=== PATIENT | female | born 1950 | race Caucasian/White ===

== ENCOUNTER 2017-01-09 16:29 | Emergency (ER) | payer MEDICARE ==
[2017-01-09] MEDS ORDERED: methylPREDNISolone SOD SUCC PF 125 MG/2 ML VIAL. IV ONE (18:45)
[2017-01-09] MEDS ORDERED: ALBUTEROL SULFATE 2.5 MG/3 ML NEBU. NEB ONE (18:45)
[2017-01-09] MEDS ORDERED: IPRATRPIUM/ALBUTEROL 0.5/2.5MG 3 ML NEBU. NEB ONE (18:45)
[2017-01-09] MEDS ORDERED: IV NORMAL SALINE 500ML 500 ML IV ONE (18:45)
[2017-01-09] MEDS ORDERED: IOHEXOL 300 MG/ML 75 ML VIAL. IV ONE (18:45)
[2017-01-09 19:45] LABS: BASO % 1 % (0-3); EOS % 0 % (0-3); HEMATOCRIT 43.9 % (36.0-47.0); HEMOGLOBIN 14.8 g/dL (12.0-15.5); LYMPH # 1.8 x10^3/uL (1.0-4.8); LYMPH % 23 % (24-48); MEAN CORPUSCULAR HEMOGLOBIN 31 pg (25-35); MEAN CORPUSCULAR HGB CONC 34 g/dL (31-37); MEAN CORPUSCULAR VOLUME 92 fL (79-100); MONO # 0.6 x10^3/uL (0.0-1.1); MONO % 8 % (0-9); NEUT # 5.2 x10^3uL (1.8-7.7); NEUT % 68 % (31-73); PLATELET COUNT 240 x10^3/uL (140-400); RED CELL DISTRIBUTION WIDTH 13.6 % (11.5-14.5); WHITE BLOOD COUNT 7.7 x10^3/uL (4.0-11.0)
--- NOTE | 2017-01-09 20:55 | RAD ---
Bilateral lower extremity venous duplex study 01/09/2017 Clinical History: Bilateral leg pain. Shortness of breath. Recent abdominal surgery. Technique: Using a combination of real time ultrasound imaging and color-flow and pulse Doppler imaging techniques along with graded compression and augmentation, duplex evaluation of the deep venous system of the both lower extremities was performed. Multiple images were obtained. Findings: There is no sonographic evidence of deep venous thrombosis involving the visualized deep venous structures of either lower extremity. Impression: Negative study. Electronically signed by: Jam Contreras MD (01/09/2017 8:52 PM) [facility]
[2017-01-09 21:22] LABS: ALBUMIN 3.5 g/dL (3.4-5.0); ALBUMIN/GLOBULIN RATIO 1.1 (1.0-1.7); CALCIUM 8.7 mg/dL (8.5-10.1); CREATININE 0.8 mg/dL (0.6-1.0); GFR 71.3; POTASSIUM 3.5 mmol/L (3.5-5.1); TOTAL BILIRUBIN 0.3 mg/dL (0.2-1.0); TOTAL PROTEIN 6.7 g/dL (6.4-8.2)
--- NOTE | 2017-01-09 21:25 | RAD ---
CT scan of the abdomen and pelvis without contrast 01/09/2017 CLINICAL HISTORY: Abdominal pain. History of abdominal surgery 6 weeks ago. TECHNIQUE: Unenhanced, contiguous, 3 mm axial sections were obtained through abdomen and pelvis. One or more of the following individualized dose reduction techniques were utilized for this study: 1. Automated exposure control. 2. Adjustment of the mA and/or kV according to patient size. 3. Use of iterative reconstruction technique. FINDINGS: Intravenous contrast was not administered due to the patient's history of contrast allergy. The absence of oral contrast material limits the study for the detection of bowel pathology. No previous imaging studies are available for comparison at this time. Images through the lung bases demonstrate linear bands of subsegmental atelectasis involving both lower lobes. The liver, spleen, pancreas, adrenal glands and kidneys are within normal limits. Moderate atherosclerotic calcification of the abdominal aorta is seen. The abdominal aorta tapers normally. The gallbladder slightly contracted. No free fluid or free air is seen within the abdomen. Air and stool seen throughout the colon. An anastomosis is seen within the right lower quadrant abdomen. There is no definite evidence of bowel obstruction. No abnormal fluid collection is seen to suggest evidence of an abscess. Increased density is seen within the subcutaneous fat to left of midline within the left lower quadrant abdomen which is presumably postsurgical. No abnormal fluid collection is seen. Images through the pelvis demonstrate the urinary bladder distended with urine. A moderate amount stool is seen involving the rectum. No free fluid is noted. Very mild S-shaped curvature of the thoracolumbar spine is seen. Degenerative changes are seen involving the mid and lower lumbar spine and both hips. IMPRESSION: No acute abnormality is seen. Electronically signed by: Jam Contreras MD (01/09/2017 9:21 PM) [facility]
[2017-01-09 22:30] VITALS: BP 136/69
[2017-01-09] MEDS ORDERED: PRED50TA PO (22:32)
[2017-01-09] MEDS ORDERED: LEVO750T31 PO (22:32)
--- NOTE | 2017-01-09 22:32 | PHYS DOC ---
Past History Past Medical History: Asthma, CHF, COPD, [place] Past Surgical History: Other Alcohol Use: None Drug Use: None Adult General Chief Complaint Chief Complaint: MULTIPLE COMPLAINTS HPI HPI Patient is a 66 year old female who presents with shortness of breath & abdominal pain. The patient reports onset of symptoms today with shortness of breath at rest, cough productive of yellow sputum, wheezing. Also reports bilateral calf pain & swelling greatest on the right. She denies fevers/chills , chest pain. She also reports abdominal bloating. She had surgery [address] Waller at [place] for abdominal wall abscess, states she had a large amount of blood from the wound last night but today denies any drainage, denies erythema/warmth/swelling. She denies nausea, vomiting, diarrhea, dysuria /hematuria. She has history of COPD dependent on home oxygen, CHF, CAD s/p [place]. No history of DVT/PE. Her resident care assistant is Dr. Benavidez. Review of Systems Review of Systems Constitutional: Denies fever or chills Eyes: Denies change in visual acuity HENT: Denies nasal congestion or sore throat Respiratory: Reports cough and shortness of breath Cardiovascular: Denies chest pain or edema GI: Denies abdominal pain, nausea, vomiting, reports bloating. : Denies dysuria or hematuria Musculoskeletal: Denies back pain or joint pain Integument: Denies rash or skin lesions. reports calf pain & swelling R > L Neurologic: Denies headache, focal weakness or sensory changes Current Medications Current Medications Current Medications Medications (Trade) Dose Ordered Sig/Fanny Start Time Stop Time Status Last Admin Dose Admin Albuterol Sulfate (Ventolin) 5 mg 1X ONCE 01/09/17 18:45 01/09/17 18:46 DC 01/09/17 19:22 5 MG Albuterol/ Ipratropium (Duoneb) 3 ml 1X ONCE 01/09/17 18:45 01/09/17 18:46 DC 01/09/17 19:22 3 ML Iohexol (Omnipaque 300 Mg/ml) 75 ml 1X ONCE 01/09/17 18:45 01/09/17 18:46 DC Methylprednisolone Sodium Succinate (SOLU-Medrol 125MG VIAL) 125 mg 1X ONCE 01/09/17 18:45 01/09/17 18:46 DC 01/09/17 21:17 125 MG Sodium Chloride 500 ml @ 0 mls/hr 1X ONCE 01/09/17 18:45 01/09/17 18:46 DC Allergies Allergies Allergies Coded Allergies Type Severity Reaction Last Updated Verified Penicillins Allergy Intermediate 01/09/17 Yes morphine Allergy Intermediate 01/09/17 Yes Physical Exam Physical Exam Constitutional: Well developed, well nourished, anxious HENT: Normocephalic, atraumatic, bilateral external ears normal, oropharynx moist, nose normal. Eyes: conjunctiva normal, no discharge. Neck: supple, no stridor. Cardiovascular: tachycardic, regular, no murmurs, no edema. Lungs & Thorax: LCTAB, no wheezing, no respiratory distress. tachypneic, speaking in short sentences. Abdomen: soft, moderate generalized tenderness with voluntary guarding, no rebound tenderness, nondistended. incision is to the left of the umbilicus, covered with clean bandage, no bleeding or purulent drainage, clean/dry/intact, no erythema/warmth/swelling. Skin: Warm, dry, no erythema, no rash. Back: No CVA tenderness. Extremities: No tenderness, no edema. no pitting edema to bilateral lower extremities but calf tenderness is present R > L, no skin changes. Neurologic: Alert and oriented X 3, no focal deficits noted. Psychologic: anxious Current Patient Data Vital Signs Vital Signs Date Time Temp Pulse Resp B/P (MAP) Pulse Ox O2 Delivery O2 Flow Rate FiO2 01/09/17 21:00 129 16 136/69 (91) 97 Room Air 01/09/17 19:33 1.5 01/09/17 18:00 98.9 Lab Results Laboratory Tests Test 01/09/17 19:25 01/09/17 20:41 White Blood Count 7.7 x10^3/uL (4.0-11.0) Red Blood Count 4.80 x10^6/uL (3.50-5.40) Hemoglobin 14.8 g/dL (12.0-15.5) Hematocrit 43.9 % (36.0-47.0) Mean Corpuscular Volume 92 fL (79-100) Mean Corpuscular Hemoglobin 31 pg (25-35) Mean Corpuscular Hemoglobin Concent 34 g/dL (31-37) Red Cell Distribution Width 13.6 % (11.5-14.5) Platelet Count 240 x10^3/uL (140-400) Neutrophils (%) (Auto) 68 % (31-73) Lymphocytes (%) (Auto) 23 % (24-48) L Monocytes (%) (Auto) 8 % (0-9) Eosinophils (%) (Auto) 0 % (0-3) Basophils (%) (Auto) 1 % (0-3) Neutrophils # (Auto) 5.2 x10^3uL (1.8-7.7) Lymphocytes # (Auto) 1.8 x10^3/uL (1.0-4.8) Monocytes # (Auto) 0.6 x10^3/uL (0.0-1.1) Eosinophils # (Auto) 0.0 x10^3/uL (0.0-0.7) Basophils # (Auto) 0.0 x10^3/uL (0.0-0.2) Lactic Acid Level 1.4 mmol/L (0.4-2.0) Prothrombin Time 10.9 SEC (9.4-11.4) Prothrombin Time INR 1.1 (0.9-1.1) D-Dimer (Neha) 0.42 mg/L (0.00-0.50) Sodium Level 140 mmol/L (136-145) Potassium Level 3.5 mmol/L (3.5-5.1) Chloride Level 104 mmol/L (98-107) Carbon Dioxide Level 31 mmol/L (21-32) Anion Gap 5 (6-14) L Blood Urea Nitrogen 10 mg/dL (7-20) Creatinine 0.8 mg/dL (0.6-1.0) Estimated GFR (Cockcroft-Gault) 71.3 BUN/Creatinine Ratio 13 (6-20) Glucose Level 108 mg/dL (70-99) H Calcium Level 8.7 mg/dL (8.5-10.1) Total Bilirubin 0.3 mg/dL (0.2-1.0) Aspartate Amino Transferase (AST) 17 U/L (15-37) Alanine Aminotransferase (ALT) 24 U/L (14-59) Alkaline Phosphatase 58 U/L (46-116) Troponin I Quantitative < 0.017 ng/mL (0-0.055) SK-Mjy-M-Type Natriuretic Peptide 90 pg/mL (0-124) Total Protein 6.7 g/dL (6.4-8.2) Albumin 3.5 g/dL (3.4-5.0) Albumin/Globulin Ratio 1.1 (1.0-1.7) Lipase 145 U/L (73-393) EKG EKG interpreted by me: NSR rate 98, no acute ST/T wave changes, normal intervals, no ectopy. some artifact is present.[] Radiology/Procedures Radiology/Procedures CXR: interpreted by me: no cardiomegaly, no infiltrate, no pneumothorax, no acute process. PROCEDURE: CT ABDOMEN PELVIS WO CONTRAST CT scan of the abdomen and pelvis without contrast 01/09/2017 CLINICAL HISTORY: Abdominal pain. History of abdominal surgery 6 weeks ago. TECHNIQUE: Unenhanced, contiguous, 3 mm axial sections were obtained through abdomen and pelvis. One or more of the following individualized dose reduction techniques were utilized for this study: 1. Automated exposure control. 2. Adjustment of the mA and/or kV according to patient size. 3. Use of iterative reconstruction technique. FINDINGS: Intravenous contrast was not administered due to the patient's history of contrast allergy. The absence of oral contrast material limits the study for the detection of bowel pathology. No previous imaging studies are available for comparison at this time. Images through the lung bases demonstrate linear bands of subsegmental atelectasis involving both lower lobes. The liver, spleen, pancreas, adrenal glands and kidneys are within normal limits. Moderate atherosclerotic calcification of the abdominal aorta is seen. The abdominal aorta tapers normally. The gallbladder slightly contracted. No free fluid or free air is seen within the abdomen. Air and stool seen throughout the colon. An anastomosis is seen within the right lower quadrant abdomen. There is no definite evidence of bowel obstruction. No abnormal fluid collection is seen to suggest evidence of an abscess. Increased density is seen within the subcutaneous fat to left of midline within the left lower quadrant abdomen which is presumably postsurgical. No abnormal fluid collection is seen. Images through the pelvis demonstrate the urinary bladder distended with urine. A moderate amount stool is seen involving the rectum. No free fluid is noted. Very mild S-shaped curvature of the thoracolumbar spine is seen. Degenerative changes are seen involving the mid and lower lumbar spine and both hips. IMPRESSION: No acute abnormality is seen. Electronically signed by: Jam Contreras MD (01/09/2017 9:21 PM) [facility] DICTATED AND SIGNED BY: JAM CONTRERAS MD DATE: 01/09/172056 PROCEDURE: VENOUS LOWER EXT BILATERAL Bilateral lower extremity venous duplex study 01/09/2017 Clinical History: Bilateral leg pain. Shortness of breath. Recent abdominal surgery. Technique: Using a combination of real time ultrasound imaging and color-flow and pulse Doppler imaging techniques along with graded compression and augmentation, duplex evaluation of the deep venous system of the both lower extremities was performed. Multiple images were obtained. Findings: There is no sonographic evidence of deep venous thrombosis involving the visualized deep venous structures of either lower extremity. Impression: Negative study. Electronically signed by: Jam Contreras MD (01/09/2017 8:52 PM) [facility] DICTATED AND SIGNED BY: JAM CONTRERSA MD DATE: 01/09/172048[] Course & Med Decision Making Course & Med Decision Making Pertinent Labs and Imaging studies reviewed. (See chart for details) The patient presents with shortness of breath & abdominal pain. She appears very anxious, is tachycardic in 110s, on oxygen by nasal cannula with normal oxygen saturation. She is very anxious, has OCD, seems to be gasping for breath during HPI but this may be related more to anxiety than cardiopulmonary disease. Gave nebulized breathing treatments & solumedrol, obtained labs, EKG, CXR, venous US of bilateral LE, & CT of her abdomen & pelvis. Labs were unremarkable. CXR negative for infiltrate, CT abdomen/pelvis no acute process, exam of abdomen demonstrates no surgical site infection. She felt much better after treatment here, resting comfortably with normal respiratory rate. Still tachycardic low 100s. Discussed results at length. Offered/recommended transfer to [place] for COPD exacerbation & further workup for PE due to her recent surgery with abnormal vitals. She did not want to stay in the hospital overnight. She is aware that there is not definite evidence that she does not have PE. However, it is encouraging that she improved after breathing treatments, that she has no evidence of DVT, & d dimer is negative - though not sufficient to exclude in light of her recent surgery & tachycardia. The patient voices understanding of this outstanding evaluation, she says she is frequently tachycardic at rest & was actually supposed to wear holter monitor through cardiology clinic. She would like to go home rather than consider admission. Recommend continue home breathing treatments, gave prescriptions for steroids & antibiotics. Follow up with PCP in 2-3 days, make an appointment with Dr. Waller in the surgery clinic. Come back for high fever, severe pain, uncontrolled vomiting, severe shortness of breath, any otherwise worsening condition. Discharged home in stable & improved condition. [] Dragon Disclaimer Dragon Disclaimer This chart was dictated in whole or in part using Voice Recognition software in a busy, high-work load, and often noisy Emergency Department environment. It may contain unintended and wholly unrecognized errors or omissions. Departure Departure: Impression: Primary Impression: COPD exacerbation Disposition: HOME, SELF-CARE Condition: STABLE Referrals: PCP,JEANNIE (PCP) Patient Instructions: Chronic Obstructive Pulmonary Disease Exacerbation, Easy- to-Read Additional Instructions: You were seen in the emergency department tonight for COPD exacerbation. You improved with treatment here. We discussed possibility of admission to evaluate further for blood clot in your lungs. You felt so much better that he wanted to go home instead of being admitted. There is still a possibility that she could have a blood clot with elevated heart rate and shortness of breath, but overall workup here was reassuring. It is very important to seek treatment if you are not improving or worsening. Please use home inhalers, take steroids and antibiotics as prescribed. Follow-up with primary care physician in 2 days. Call surgery clinic in the morning to schedule a follow-up appointment this week. Make sure they know that you were just seen in the emergency department today. Return to the emergency department for high fever, severe shortness of breath or chest pain, severe abdominal pain, uncontrolled vomiting, any otherwise worsening condition. Scripts Levofloxacin (LEVAQUIN) 750 Mg Tablet 1 TAB PO DAILY, #5 TAB Prov: WEI SONG MD 01/09/17 Prednisone (PREDNISONE) 50 Mg Tablet 1 TAB PO DAILY, #5 TAB Prov: WEI SONG MD 01/09/17 WEI SONG MD Jan 09, 2017 22:32
--- NOTE | 2017-01-09 23:41 | EKG ---
[address] [address] Test Date: 2017-01-09 Test Time: 18:46:23 Pat Name: EVE SCHNEIDER Department: Room: Gender: F Mat Inspector: ISATU : [id number] Requested By: WEI SONG Order Number: [id number] Reading MD: Gil Benavidez MD Measurements Intervals [place] Rate: 98 P: 76 NM: 160 QRS: -30 QRSD: 74 T: 80 QT: 336 QTc: 431 Interpretive Statements SINUS RHYTHM Electronically Signed On 01-15-2017 16:43:04 [employer] by Gil Benavidez MD
--- NOTE | 2017-01-10 08:09 | RAD ---
EXAM: Chest one view. HISTORY: Shortness of breath, chronic obstructive pulmonary disease. COMPARISON: None. FINDINGS: A frontal view of the chest is obtained. Hyperinflation is consistent with chronic obstructive pulmonary disease. There is blunting of the costophrenic angles on the right greater than left, consistent with scarring or small pleural effusions. There is no pneumothorax. The heart is not enlarged. IMPRESSION: 1. Chronic obstructive pulmonary disease. 2. Small pleural effusions versus scarring in the costophrenic angles.
== END 2017-01-09 22:50 | disposition home or self-care (01) ==
LOC: ER 16:29
DX: J44.1 Chronic obstructive pulmonary disease with (acute) exacerbation (principal); I25.10 Atherosclerotic heart disease of native coronary artery without angina pectoris; I50.9 Heart failure, unspecified; I25.2 Old myocardial infarction; Z99.81 Dependence on supplemental oxygen; Z88.0 Allergy status to penicillin; Z88.5 Allergy status to narcotic agent
CPT/HCPCS: 36415; 71010; 74176; 80053; 83605; 83690; 83880; 84484; 85025; 85379; 85610; 93005; 93970; 94640; 96374; 99285; J2930; J7613; J7620